=== PATIENT | male | born 1960 | race American Indian/Alaskan Native ===

== ENCOUNTER 2020-12-12 00:16 | Emergency (ER) | payer SELFPAY ==
[2020-12-12 01:09] LABS: Basophils % (Auto) 0.6 % (0.0-1.8); Eosinophils % (Auto) 0.3 % (0.0-4.3); Hemoglobin 14.4 gm/dl (11.8-15.2); Lymphocytes # (Auto) 2.2 K/mm3 (1.2-5.4); Lymphocytes % (Auto) 24.9 % (13.4-35.0); Mean Corpuscular HGB Conc 33 % (32-34); Mean Corpuscular Volume 93 fl (84-94); Monocytes # (Auto) 0.5 K/mm3 (0.0-0.8); Platelet Count 280 K/mm3 (140-440); Red Cell Distribution Width 13.9 % (13.2-15.2)
[2020-12-12 01:32] LABS: Alanine Aminotransferase 18 units/L (7-56); Albumin 4.4 g/dL (3.9-5); Blood Urea Nitrogen 6 mg/dL (9-20); Calcium 9.3 mg/dL (8.4-10.2); Hemolysis Index 1
[2020-12-12 01:40] LABS: BUN/Creatinine Ratio 9; Bilirubin,Direct < 0.2 mg/dL (0-0.2)
--- NOTE | 2020-12-12 01:48 | Event Note ---
ED Screening Note ED Screening Note: 6-year-old male was emerge department complaining of a 4-day history of progressively worsening headache, dizziness, blurred vision, chest pain, numbness and tingling to the arm and vague abdominal discomfort with nausea says feels very similar to when his had a stroke This initial assessment/diagnostic orders/clinical plan/treatment(s) is/are subject to change based on patients health status, clinical progression and re- assessment by fellow clinical providers in the ED. Further treatment and workup at subsequent clinical providers discretion. Patient/guardian urged not to elope from the ED as their condition may be serious if not clinically assessed and managed. Initial orders include: Labs, EKG, chest x-ray, CT scan
[2020-12-12 01:56] LABS: Bilirubin,Urine NEG (Negative); Blood,Urine SM (Negative); Color,Urine Yellow (Yellow); Mucus,Urine 3+ /HPF
--- NOTE | 2020-12-12 02:41 | Cat Scan Report ---
CT head without contrast INDICATION : Patient complains of a headache. TECHNIQUE: Axial imaging performed from the skull apex through the skull base without the use of con trast. All CT scans at this location are performed using CT dose reduction for ALARA by means of aut omated exposure control. COMPARISON: None FINDINGS: Parenchyma: No acute intracranial hemorrhage or parenchymal abnormality. Ventricles: Ventricles are normal in size and appear symmetric. Soft tissues: Soft tissues including the orbits appear normal. Bones: No acute osseous abnormality. Sinuses: Sinuses and mastoid air cells are clear. IMPRESSION: No acute abnormality. Signer Name: Alfie Dougherty MD Signed: 12/12/2020 2:36 AM Workstation Name: [id number]
--- NOTE | 2020-12-12 02:41 | XRay Report ---
CHEST 2 VIEWS INDICATION: chest. COMPARISON: None FINDINGS: SUPPORT DEVICES: None. HEART: Within normal limits. LUNGS/PLEURA: Minimal edema. No consolidation or effusion. No pneumothorax. ADDITIONAL FINDINGS: None. IMPRESSION: 1. Minimal interstitial edema. Signer Name: Alfie Dougherty MD Signed: 12/12/2020 2:36 AM Workstation Name: [id number]
--- NOTE | 2020-12-12 06:09 | Emergency Department Report ---
ED General Adult HPI - General Chief complaint: Dizziness Stated complaint: DIZZINESS/WEAKNESS Time Seen by Provider: 12/12/20 06:03 Source: patient Mode of arrival: Ambulatory Limitations: No Limitations - History of Present Illness Initial comments: Patient is a 60-year-old male who presents emergency department for evaluation of 2 days of room spinning sensation occurring intermittently throughout the day. Patient denies headache, denies difficulty walking, denies extremity weakness or sensory changes. Patient denies chest pain, denies shortness of breath, denies fever. Patient denies trauma. Patient denies nausea vomiting. Patient states at present time is asymptomatic. - Related Data Allergies Allergy/AdvReac Type Severity Reaction Status Date / Time No Known Allergies Allergy Unverified 12/12/20 01:21 ED Review of Systems ROS: Stated complaint: DIZZINESS/WEAKNESS Other details as noted in HPI Comment: All other systems reviewed and negative ED Past Medical Hx - Past Medical History Previous Medical History?: Yes Hx Hypertension: Yes Hx GERD: Yes Additional medical history: High Cholesterol - Surgical History Past Surgical History?: No - Social History Smoking Status: Current Every Day Smoker Substance Use Type: Alcohol ED Physical Exam - General Limitations: No Limitations General appearance: alert, in no apparent distress - Head Head exam: Present: atraumatic, normocephalic - Eye Eye exam: Present: normal appearance - ENT ENT exam: Present: mucous membranes moist - Neck Neck exam: Present: normal inspection - Respiratory Respiratory exam: Present: normal lung sounds bilaterally. Absent: respiratory distress - Cardiovascular Cardiovascular Exam: Present: regular rate, normal rhythm - GI/Abdominal GI/Abdominal exam: Present: soft, normal bowel sounds - Rectal Rectal exam: Present: deferred - Extremities Exam Extremities exam: Present: normal inspection - Back Exam Back exam: Present: normal inspection - Neurological Exam Neurological exam: Present: alert, oriented X3 - Expanded Neurological Exam Expanded Speech: Present: fluid speech Cranial nerves: EOM's Intact: Normal, Tongue Deviation: Normal, Nystagmus: Normal, Facial Sensation: Normal Cerebellar function: Finger to Nose: Normal, Heel to Perdomo: Normal - Psychiatric Psychiatric exam: Present: normal affect, normal mood - Skin Skin exam: Present: warm, dry, intact, normal color. Absent: rash ED Course Vital Signs 12/12/20 12/12/20 12/12/20 00:58 04:45 05:01 Temperature 98.3 F 98.3 F Pulse Rate 59 L 64 75 Respiratory 18 18 16 Rate Blood Pressure 136/74 128/93 Blood Pressure 128/93 [Left] O2 Sat by Pulse 97 99 98 Oximetry 12/12/20 12/12/20 12/12/20 05:15 05:31 05:45 Temperature Pulse Rate 51 L 55 L 54 L Respiratory 15 16 19 Rate Blood Pressure 128/93 126/68 128/68 Blood Pressure [Left] O2 Sat by Pulse 97 96 96 Oximetry 12/12/20 12/12/20 06:01 06:15 Temperature Pulse Rate 59 L 68 Respiratory 21 Rate Blood Pressure 124/72 134/83 Blood Pressure [Left] O2 Sat by Pulse 96 97 Oximetry - Reevaluation(s) Reevaluation #1: 12/12/20 07:53 Patient asymptomatic with normal work-up, normal neurologic exam. Patient in between 50 to 70 bpm on felt checker depending on wakefulness, advised to follow-up with PMD in 1 to 2 days for reevaluation and possibly cardiology for Holter monitor placement to ensure patient is not becoming bradycardiac and causing dizziness. Patient takes only lisinopril and statin at home. ED Medical Decision Making - Lab Data Result diagrams: 12/12/20 00:52 12/12/20 00:52 Labs 12/12/20 12/12/20 12/12/20 00:52 00:52 01:25 WBC 8.9 RBC 4.60 Hgb 14.4 Hct 43.0 MCV 93 MCH 31 MCHC 33 RDW 13.9 Plt Count 280 Lymph % (Auto) 24.9 [place] % (Auto) 6.0 Eos % (Auto) 0.3 Baso % (Auto) 0.6 Lymph # (Auto) 2.2 [place] # (Auto) 0.5 Eos # (Auto) 0.0 Baso # (Auto) 0.0 Seg Neutrophils % 68.2 Seg Neutrophils # 6.0 Sodium 140 Potassium 4.0 Chloride 104.5 Carbon Dioxide 26 Anion Gap 14 BUN 6 L Creatinine 0.7 L Estimated GFR > 60 BUN/Creatinine Ratio 9 Glucose 107 H Calcium 9.3 Total Bilirubin 0.30 Direct Bilirubin < 0.2 Indirect Bilirubin 0.1 AST 17 ALT 18 Alkaline Phosphatase 60 Troponin T Total Protein 7.6 Albumin 4.4 Albumin/Globulin Ratio 1.4 Lipase 12 L Urine Color Yellow Urine Turbidity Clear Urine pH 7.0 Ur Specific [place] 1.024 Urine Protein 100 mg/dl Urine Glucose (UA) Neg Urine Ketones Neg Urine Blood Sm Urine Nitrite Neg Urine Bilirubin Neg Urine Urobilinogen 2.0 Ur Leukocyte Esterase Neg Urine WBC (Auto) 1.0 Urine RBC (Auto) 32.0 U Epithel Cells (Auto) < 1.0 Urine Mucus 3+ 12/12/20 01:52 WBC RBC Hgb Hct MCV MCH MCHC RDW Plt Count Lymph % (Auto) [place] % (Auto) Eos % (Auto) Baso % (Auto) Lymph # (Auto) [place] # (Auto) Eos # (Auto) Baso # (Auto) Seg Neutrophils % Seg Neutrophils # Sodium Potassium Chloride Carbon Dioxide Anion Gap BUN Creatinine Estimated GFR BUN/Creatinine Ratio Glucose Calcium Total Bilirubin Direct Bilirubin Indirect Bilirubin AST ALT Alkaline Phosphatase Troponin T < 0.010 Total Protein Albumin Albumin/Globulin Ratio Lipase Urine Color Urine Turbidity Urine pH Ur Specific [place] Urine Protein Urine Glucose (UA) Urine Ketones Urine Blood Urine Nitrite Urine Bilirubin Urine Urobilinogen Ur Leukocyte Esterase Urine WBC (Auto) Urine RBC (Auto) U Epithel Cells (Auto) Urine Mucus Vital Signs 12/12/20 12/12/20 12/12/20 00:58 04:45 05:01 Temperature 98.3 F 98.3 F Pulse Rate 59 L 64 75 Respiratory 18 18 16 Rate Blood Pressure 136/74 128/93 Blood Pressure 128/93 [Left] O2 Sat by Pulse 97 99 98 Oximetry 12/12/20 12/12/20 12/12/20 05:15 05:31 05:45 Temperature Pulse Rate 51 L 55 L 54 L Respiratory 15 16 19 Rate Blood Pressure 128/93 126/68 128/68 Blood Pressure [Left] O2 Sat by Pulse 97 96 96 Oximetry 12/12/20 12/12/20 06:01 06:15 Temperature Pulse Rate 59 L 68 Respiratory 21 Rate Blood Pressure 124/72 134/83 Blood Pressure [Left] O2 Sat by Pulse 96 97 Oximetry - EKG Data -: EKG Interpreted by Me (SR at 54, (-) ST-T changes, normal QRs) - Radiology Data Radiology results: report reviewed Chest x-ray and CT head negative per radiology Critical care attestation.: If time is entered above; I have spent that time in minutes in the direct care of this critically ill patient, excluding procedure time. ED Disposition Clinical Impression: Dizziness Disposition: DC-01 TO HOME OR SELFCARE Is pt being admited?: No Condition: Stable Instructions: Bradycardia, Adult, Dizziness Additional Instructions: Follow-up with primary care doctor or cardiology in 1 to 2 days for reevaluation. Please note your pulse is approaching low normal which may be related to your symptoms, consequently you may benefit from halter monitoring. Return to the ER for worsening symptoms. Referrals: LORA EARL MD [Staff Physician] - 3-5 Days PRIMARY CAREMD [Primary Care Provider] - 3-5 Days - Level of Consciousness 1a. Level of Consciousness: alert/keenly responsive - LOC Questions 1b. LOC Questions: answers both correctly - LOC Command 1c. LOC Commands: performs tasks correctly - Best Gaze 2. Best Gaze: normal - Visual 3. Visual: no visual loss - Facial Palsy 4. Facial Palsy: normal symmetrical movement - Motor Arm 5a. Motor Arm Left: no drift 5b. Motor Arm Right: no drift - Motor Leg 6a. Motor Leg Left: no drift 6b. Motor Leg Right: no drift - Limb Ataxia 7. Limb Ataxia: absent - Sensory 8. Sensory: normal - Best Language 9. Best Language: no aphasia - Dysarthria 10. Dysarthria: normal - Extinction and Inattention 11. Extinction/Inattention: no abnormality - Scoring Total Score: 0 Stroke Severity: No Stroke Symptoms
[2020-12-12 06:32] VITALS: BP 134/83
--- NOTE | 2020-12-12 09:38 | Electrocardiograph Report ---
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
== END 2020-12-12 06:30 | disposition home or self-care (01) ==
LOC: ED 00:16
DX: R42 Dizziness and giddiness (principal); I10 Essential (primary) hypertension; K21.9 Gastro-esophageal reflux disease without esophagitis; Z79.899 Other long term (current) drug therapy
CPT/HCPCS: 36415; 70450; 71046; 80048; 80076; 81001; 83690; 84484; 85025; 93005